=== PATIENT | female | born 1995 | race Caucasian/White ===

== ENCOUNTER 2017-04-18 17:29 | Emergency (ER) | payer BC ==
[2017-04-18 17:37] VITALS: TEMP 98.1
--- NOTE | 2017-04-18 18:05 | CPEKG ---
Heart Rate: 86 RR Interval: 698 P-R Interval: 160 QRSD Interval: 76 QT Interval: 376 QTC Interval: 450 P [place]: 18 QRS [place]: 58 T Wave [place]: 40 EKG Severity - OTHERWISE NORMAL ECG - EKG Impression: SINUS ARRHYTHMIA, RATE 77-91 Electronically Signed By: Chayo Dillard 19-Apr-2017 11:51:07
[2017-04-18] MEDS ORDERED: LORazepam 1 MG TAB PO ONE (18:13)
--- NOTE | 2017-04-18 18:19 | EDPHY ---
H & P Stated Complaint: feels like heart is racing/sob/hyperventilating Source: Patient Exam Limitations: No limitations - Personal History LMP (Females 10-55): Now Current Tetanus/Diphtheria Vaccine: No - Medical/Surgical History Hx Asthma: No Hx Chronic Respiratory Disease: No Hx Diabetes: No Hx Cardiac Disease: No Hx Renal Disease: No Hx Cirrhosis: No Hx Alcoholism: No Hx HIV/AIDS: No Hx Splenectomy or Spleen Trauma: No Other PMH: ear surgery, tonsillectomy - Social History Smoking Status: Current some day smoker Alcohol Use: Occasionally Drug Use: None Time Seen by Provider: 04/18/17 17:39 HPI/ROS: CHIEF COMPLAINT: heart pounding HISTORY OF PRESENT ILLNESS: 22-year-old female presents emergency department with her friends reporting she thinks she is having a anxiety attack. Patient reports she was home watching TV her friends when she started feeling like her heart was pounding, she reports she had a difficult getting a deep breath, felt tingling in her hands and feet and felt like she was going to pass out. Patient reports she had 7-10 drinks last night and has been drinking every night for the last 7 days for her birthday. Patient states she was in [place] for a month and drink almost every day in [place] as well, she usually drinks about twice weekly 3-4 drinks. Patient reports increased stress lately as she just found out her mother and father are getting a divorce and selling the house she grew up in. The patient is tearful. Patient denies chest pain or shortness of breath, she reports she feels like her heart is pounding which has improved and like she could not get a deep breath and this has also improved. Patient has no significant past medical history, no history of pulmonary embolisms or blood clots, no family history of blood clot. REVIEW OF SYSTEMS: A comprehensive 10 point review of systems is otherwise negative aside from elements mentioned in the history of present illness. (Joan Menchaca) - Physical Exam Exam: Physical Exam Gen: Alert and Oriented, tearful HEENT: PERRL, moist mucous membranes NECK: no meningismus CV: regular rate and regular rhythm PULM: CTAB, no wheezes ABDOMEN: soft, non tender to palpation, BS present BACK: No CVA tenderness NEURO: Neurologically grossly intact EXTREMITIES: normal appearing SKIN: no rash or break in skin on exposed skin PSYCH: answers questions appropriately. (Joan Menchaca) Constitutional: Initial Vital Signs Temperature (C) 36.7 C 04/18/17 17:34 Heart Rate 82 04/18/17 17:34 Respiratory Rate 27 H 04/18/17 17:34 Blood Pressure 159/100 H 04/18/17 17:34 O2 Sat (%) 99 04/18/17 17:34 O2 Delivery Mode Room Air Allergies/Adverse Reactions: No Known Allergies Allergy (Verified 04/18/17 17:33) Home Medications: Medication Instructions Recorded Bcp 04/18/17 Lorazepam 04/18/17 Medical Decision Making - Diagnostics EKG Interpretation: EKG shows normal sinus rhythm, rate 86, normal axis, good R-wave progression, no ST or T-wave abnormalities (Joan Menchaca) ED Course/Re-evaluation: EKG obtained, patient is given 1 mg of lorazepam p.o. 1900- Patient is smiling and laughing and room with her friends, she reports her symptoms have completely resolved and she feels much better. I think the patient likely was having a panic attack. I considered though doubt pulmonary embolism, acute coronary syndrome, pneumonia. Patient had a normal EKG in the emergency department and a negative urine test. The patient has been given strict return precautions for any chest pain, return of symptoms, new symptoms or concerns. I have recommended alcohol cessation. (Joan Menchaca) I did not see this patient while she was in the emergency department. However her care was discussed with the nurse practitioner while the patient was in the department. I agree with treatment plan and management (Abebe Conner) - Data Points Medications Given: Discontinued Medications Lorazepam (Ativan) 1 mg PO EDNOW ONE Stop: 04/18/17 18:14 Last Admin: 04/18/17 18:20 Dose: 1 mg Departure - Departure Disposition: Home, Routine, Self-Care Clinical Impression: Panic attack Condition: Good Instructions: Panic Attack (ED) Additional Instructions: Drink plenty of fluids, eat a well-balanced diet, start limiting your alcohol use as I think this could be contributing to your symptoms. Return to the emergency department immediately for any worsening symptoms, new symptoms or concerns. Referrals: Bonnie Gupta MD [Medical Doctor] - Follow Up Only If Needed (Primary care doctor on-call)
[2017-04-18 18:57] VITALS: BP 139/94; PULSE 84; RESP 18; O2SAT 97
== END 2017-04-18 19:11 | disposition home or self-care (01) ==
DX: F41.0 Panic disorder [episodic paroxysmal anxiety] (principal); F17.200 Nicotine dependence, unspecified, uncomplicated